=== PATIENT | female | born 1980 | race Caucasian/White ===

== ENCOUNTER 2021-08-07 17:17 | Emergency (ER) | payer OTHER ==
[~2021-08-07] VITALS: Ht 160 cm; Wt 68.0 kg
[2021-08-07 17:28] VITALS: BP 113/78
== END 2021-08-07 22:45 | disposition left against medical advice (07) ==
LOC: ER 17:17
DX: J02.9 Acute pharyngitis, unspecified (principal); R05.9 Cough, unspecified; R09.81 Nasal congestion; R50.9 Fever, unspecified; Z20.822 Contact with and (suspected) exposure to COVID-19; Z53.21 Procedure and treatment not carried out due to patient leaving prior to being seen by health care provider
CPT/HCPCS: 36415; 87426

== ENCOUNTER 2021-09-10 19:02 | Emergency (ER) | payer OTHER ==
[~2021-09-10] VITALS: Ht 160 cm; Wt 69.9 kg
[2021-09-10 22:47] VITALS: BP 109/62
== END 2021-09-11 00:31 | disposition home or self-care (01) ==
LOC: ER 19:02
DX: K11.1 Hypertrophy of salivary gland (principal); J32.9 Chronic sinusitis, unspecified
CPT/HCPCS: 70486; 70490

== ENCOUNTER 2022-05-29 22:46 | Emergency (ER) | payer OTHER ==
[~2022-05-29] VITALS: Ht 160 cm; Wt 60.5 kg
[2022-05-30 00:14] LABS: Urine Bacteria NONE SEEN /hpf (None Seen); Urine Blood Negative /uL (Negative); Urine Specific Gravity 1.025 (1.001-1.035); Urine WBC 1 /hpf (0 - 5)
[2022-05-30 03:44] VITALS: BP 103/62
== END 2022-05-30 03:51 | disposition home or self-care (01) ==
LOC: ER 22:46
DX: R10.11 Right upper quadrant pain (principal)
CPT/HCPCS: 74176; 81001